=== PATIENT | male | born 1995 ===

== ENCOUNTER 2020-05-16 10:00 | Emergency (ER) | payer SELFPAY ==
[2020-05-16] MEDS ORDERED: predniSONE 20 MG TAB PO ONE (10:15)
--- NOTE | 2020-05-16 10:37 | Emergency Department Report ---
ED General Adult HPI - General Chief complaint: Seizure Stated complaint: SEIZURE Time Seen by Provider: 05/16/20 10:11 Source: EMS Mode of arrival: Stretcher Limitations: No Limitations - History of Present Illness Initial comments: Patient is a 25-year-old gentleman who is presenting for shortness of breath. Patient has a history of asthma states that he ran out of his albuterol inhaler. States he has had a mild cough with no fever. Patient was thought to have had a seizure prior to his arrival but he states he has a history of pseudoseizures and when he gets upset or stressed he sometimes shakes. He denies any fevers chills nausea vomiting diarrhea at this time. - Related Data Home Medications Medication Instructions Recorded Confirmed Last Taken ALBUTEROL NEB's [Proventil 0.083% 2.5 mg IH TID PRN 05/16/20 05/16/20 Unknown NEBS] Escitalopram [Lexapro] 10 mg PO DAILY 05/16/20 05/16/20 Unknown traZODone [Desyrel] 50 mg PO QHS 05/16/20 05/16/20 Unknown Previous Rx's Medication Instructions Recorded Last Taken Type Albuterol Mdi (or & Nicu Only) 2 puff IH QID PRN #1 inhalation 05/16/20 Unknown Rx [ProAir HFA Inhaler] predniSONE [Deltasone] 20 mg PO QDAY #5 tab 05/16/20 Unknown Rx Allergies Allergy/AdvReac Type Severity Reaction Status Date / Time acetaminophen Allergy Unknown Verified 05/16/20 10:06 ED Review of Systems ROS: Stated complaint: SEIZURE Other details as noted in HPI Comment: All other systems reviewed and negative ED Past Medical Hx - Social History Smoking Status: Never Smoker Substance Use Type: None - Medications Home Medications: Home Medications Medication Instructions Recorded Confirmed Last Taken Type ALBUTEROL NEB's [Proventil 0.083% 2.5 mg IH TID PRN 05/16/20 05/16/20 Unknown History NEBS] Albuterol Mdi (or & Nicu Only) 2 puff IH QID PRN #1 inhalation 05/16/20 Unknown Rx [ProAir HFA Inhaler] Escitalopram [Lexapro] 10 mg PO DAILY 05/16/20 05/16/20 Unknown History predniSONE [Deltasone] 20 mg PO QDAY #5 tab 05/16/20 Unknown Rx traZODone [Desyrel] 50 mg PO QHS 05/16/20 05/16/20 Unknown History ED Physical Exam - General Limitations: No Limitations General appearance: alert, in no apparent distress - Head Head exam: Present: atraumatic, normocephalic - Eye Eye exam: Present: normal appearance - ENT ENT exam: Present: normal orophraynx, mucous membranes moist - Neck Neck exam: Present: normal inspection - Respiratory Respiratory exam: Present: normal lung sounds bilaterally. Absent: respiratory distress, wheezes, rales, rhonchi - Cardiovascular Cardiovascular Exam: Present: regular rate, normal rhythm, normal heart sounds. Absent: systolic murmur, diastolic murmur, rubs, gallop - GI/Abdominal GI/Abdominal exam: Present: soft, normal bowel sounds - Rectal Rectal exam: Present: deferred - Extremities Exam Extremities exam: Present: normal inspection - Back Exam Back exam: Present: normal inspection - Neurological Exam Neurological exam: Present: alert, oriented X3 - Psychiatric Psychiatric exam: Present: normal affect, normal mood - Skin Skin exam: Present: warm, dry, intact, normal color. Absent: rash ED Course Vital Signs 05/16/20 05/16/20 05/16/20 10:03 10:09 10:10 Temperature 98.8 F Pulse Rate 98 H 103 H Respiratory 18 13 18 Rate Blood Pressure 115/51 O2 Sat by Pulse 100 99 99 Oximetry ED Medical Decision Making - Medical Decision Making Patient with no active wheezing at this time. Was given prednisone for the symptoms that he states he has had for the last several days and will refill albuterol inhaler for the patient. Critical care attestation.: If time is entered above; I have spent that time in minutes in the direct care of this critically ill patient, excluding procedure time. ED Disposition Clinical Impression: Asthma exacerbation Qualifiers: Asthma severity: mild Asthma persistence: intermittent Qualified Code(s): J45.21 - Mild intermittent asthma with (acute) exacerbation Disposition: - TO HOME OR SELFCARE Is pt being admited?: No Does the pt Need Aspirin: No Condition: Stable Instructions: Asthma, Adult Referrals: MIKA CARRILLO MD [Referring] - 3-5 Days Time of Disposition: 10:36
[2020-05-16 10:47] VITALS: BP 119/61
== END 2020-05-16 11:05 | disposition home or self-care (01) ==
LOC: ED 10:00
DX: J45.901 Unspecified asthma with (acute) exacerbation (principal); Z79.899 Other long term (current) drug therapy; Z88.8 Allergy status to other drugs, medicaments and biological substances
CPT/HCPCS: 99283; J7512